=== PATIENT | male | born 1980 | race Caucasian/White ===

== ENCOUNTER 2017-06-10 14:49 | Emergency (ER) | payer OTHER ==
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
[2017-06-10 16:53] VITALS: RESP 20
[2017-06-10 18:27] VITALS: BP 121/83; PULSE 97; TEMP 99; O2SAT 96
== END 2017-06-10 18:25 | disposition home or self-care (01) ==
LOC: EDUNIT#
PROC: 0HQDXZZ Repair Right Lower Arm Skin, External Approach (ICD-10-PCS; principal; 2017-06-10)
PROC: 0HQFXZZ Repair Right Hand Skin, External Approach (ICD-10-PCS; principal; 2017-06-10)
DX: S61.412A Laceration without foreign body of left hand, initial encounter (principal); V49.49XA Driver injured in collision with other motor vehicles in traffic accident, initial encounter; Y92.410 Unspecified street and highway as the place of occurrence of the external cause; Y99.8 Other external cause status; Y93.89 Activity, other specified